=== PATIENT | female | born 1940 | race Caucasian/White ===

== ENCOUNTER 2018-11-13 15:49 | Inpatient (IN) ==
[2018-11-13 19:38] LABS: ABG Base Excess 11 mEq/L (-2 to 3); ABG HCO3 38 mEq/L (21-27); ABG Oxygen Saturation 96 % (95-98); ABG PCO2 60 mmHg (35-45); ABG PH 7.41 pH Units (7.32-7.45); ABG PO2 84 mmHg (85-104); ABG TCO2 40 mEq/L (20-26); Blood Gas Modality ST; Blood Gas PEEP 12 cm H2O; Blood Gas Pressure Support 6 cm H2O
[2018-11-13 19:59] LABS: Basophils % 0.3 %; Eosinophils % 0.1 %; Hematocrit 35.4 % (35.3-44.9); Hemoglobin 10.7 g/dL (11.5-15.4); Immature Granulocytes % 1.7 % (0-4); Lymphocytes # 0.5 K/mcL (0.6-4.6); Lymphocytes % 5.4 %; Mean Corpuscular HGB Conc 30.2 g/dL (31.6-35.5); Mean Corpuscular Hemoglobin 30.1 pg (28.0-33.3); Mean Corpuscular Volume 99.4 fL (83.0-100.0); Mean Platelet Volume 9.5 fL (9.4-12.4); Monocytes # 0.1 K/mcL (0.0-1.3); Monocytes % 0.6 %; Neutrophils # 8.3 K/mcL (1.6-8.9); Platelet Count 200 K/mcL (140-400); Red Blood Count 3.56 M/mcL (3.82-4.97); Segmented Neutrophils % 91.9 %
[2018-11-13 20:14] LABS: Alanine Aminotransferase 9 Units/L (7-52); Albumin 3.3 g/dL (3.5-5.7); Albumin/Globulin Ratio 1.1 (1.1-2.2); Alkaline Phosphatase 82 Units/L (34-104); Aspartate Amino Transferase 11 Units/L (13-39); BUN/Creatinine Ratio 49 (6-26); Bilirubin,Total 0.4 mg/dL (0.3-1.0); Blood Urea Nitrogen 33 mg/dL (8-23); Calcium 9.6 mg/dL (8.6-10.3); Carbon Dioxide 35 mEq/L (23-29); Chloride 97 mEq/L (98-107); Globulin 3.1 g/dL (2.4-3.5); Glucose 168 mg/dL (70-105); Osmolality,Calculated 295 (280-300); Potassium 4.7 mEq/L (3.5-5.1); Sodium 137 mEq/L (136-145); Total Protein 6.4 g/dL (6.4-8.9); eGFR For African Americans > 60 (> 60); eGFR For Non-African Americans > 60 (> 60)
[2018-11-13] MEDS ORDERED: Naloxone 0.4 MG/ML INJ IVP PRN (21:19)
[2018-11-13] MEDS ORDERED: Dextrose Gel 15 GM/37.5 ML TUBE PO PRN ×2 (21:22)
[2018-11-13] MEDS ORDERED: D5% in Water 1,000 ML IVC PRN (21:22)
[2018-11-13] MEDS ORDERED: *HR* Dextrose 50 % in Water (Syg) 50 ML SYRINGE IVP PRN (21:22)
--- NOTE | 2018-11-13 22:10 | Internal Med History&Physical ---
Date of Encounter: 11/13/18 Time of Encounter: 22:09 Internal Medicine - H&P: HPI Chief complaint: Shortness of breath History of present illness: Ms. Norris is a 78 year old female with a past medical history of atrial fibrillation on anticoagulation, RI, CHF, COPD on home O2, and diabetes who initially presented to [facility] because of worsening shortness of b reath. Patient states she has had shortness of breath for the past few weeks which progressively got worse today. Patient reports some wheezing as well as increased lower extremity edema. She is currently on Lasix and reports medication compliance. Denies any chest pain. Patient has a cough but reports is chronic and unchanged. Patient is unsure about weight gain. Denies any fever, chills, abdominal pain, diarrhea. Patient is on oxygen but does not know the amount. Per family was at bedside, she has been noncompliant with her BiPAP which she has been instructed to wear at night. Patient reportedly found to have a PCO2 of 84 and was subsequently placed on BiPAP. Repeat PCO2 is 81. INR was slightly subtherapeutic at 4.1. On arrival patient was afebrile, hemodynamically stable. Tachycardic in the 120s. On my assessment patient was offered BiPAP saturating 93% on 4 L. Repeat ABG was obtained which showed a pH of 7.41, PCO2 of 60, PO2 of 84. She was alert oriented 3 mentating well. No evidence of respiratory distress. Admitted for CHF and COPD exacerbation. Past Med Surg Social Fam HX - Past Medical History Medical history: atrial fibrillation, CHF, COPD, diabetes, hyperlipidemia, hypertension, myocardial infarction Additional medical history: neuropathy, anemia, breast cx Psychiatric history: no psych history - Past Surgical History Surgical History: knee replacement Additional surgical history: right leg surgery, cardiac stents, - Social History Smoking Status: Former smoker Smokeless Tobacco Status: No Alcohol use: none Drug use: none - Family History Mother Living Status: Cause of : Stroke Hx Family Endocrine Disorder: Yes (DM) Internal Medicine - H&P: Meds Acetaminophen [Tylenol] 650 mg PO Q6HR PRN 11/14/18 [History] Albuterol Neb [Proventil Neb] 2.5 mg IH Q6HR PRN 11/14/18 [History] Allopurinol [Zyloprim] 300 mg PO DAILY 11/14/18 [History] Diltiazem CD (24hr) [Cardizem CD] 180 mg PO QAM 11/14/18 [History] Escitalopram [Lexapro] 10 mg PO DAILY 11/14/18 [History] Ferrous Sulfate [Iron] 325 mg PO DAILY 11/14/18 [History] Fluticasone Propionate [Flovent Diskus] 2 each IH QAM 11/14/18 [History] Fluticasone/Salmeterol [Advair 500-50 Diskus] 1 puff IH BID 11/14/18 [History] Furosemide [Lasix] 40 mg PO BID 11/14/18 [History] Insulin ASPART [Novolog Flexpen] See Protocol SQ ACHS 11/14/18 [History] Insulin DETEMIR [Levemir Flextouch] 30 unit SQ HS 11/14/18 [History] Ipratropium Neb [Atrovent Neb] 0.5 mg IH Q8HR PRN 11/14/18 [History] Melatonin [Melatin] 3 mg PO HS 11/14/18 [History] Metoprolol Succinate 50 mg PO QAM 11/14/18 [History] Nitroglycerin [Nitrostat] 0.4 mg SL Q5MIN PRN 11/14/18 [History] Omeprazole [PriLOSEC] 20 mg PO DAILY 11/14/18 [History] Ondansetron ODT [Zofran ODT] 4 mg SL Q6HR PRN 11/14/18 [History] Polyethylene Glycol 3350 [MiraLAX] 17 gm PO DAILY 11/14/18 [History] Sennosides/Docusate Sodium [Dok Plus Tablet] 1 each PO DAILY 11/14/18 [History] Simvastatin [Zocor] 10 mg PO DAILY 11/14/18 [History] Ubidecarenone [Coenzyme Q10] 200 mg PO DAILY 11/14/18 [History] Vitamin B Complex [B Complex] 1 tab PO QAM 11/14/18 [History] Warfarin [Coumadin] 3 mg PO DAILY 11/14/18 [History] Allergy/AdvReac Type Severity Reaction Status Date / Time Amoxicillin Allergy Unknown Verified 11/13/18 22:34 atorvastatin [From Lipitor] Allergy Shakiness Verified 11/13/18 22:34 celecoxib [From Celebrex] Allergy Shakiness Verified 11/13/18 22:34 naproxen Allergy Shakiness Verified 11/13/18 22:34 NSAIDS (Non-Steroidal Allergy Shakiness Verified 11/13/18 22:34 Anti-Inflamma Penicillins AdvReac Depression Verified 11/13/18 19:43 All Systems PM: A 10-system review of systems was performed and is negative for pertinent findings except as documented above in the HPI. - Constitutional Constitutional: no chills, no fever(s), no night sweats - EENT Eyes: no change in vision, no discharge, no pain, no photophobia Ears: no ear discharge, no ear pain, no tinnitus Nose, mouth and throat: no dysphagia, no nasal discharge, no neck pain, no sore throat - Cardiovascular Cardiovascular ROS IM: no chest pain, no diaphoresis, no dyspnea, no lightheadedness, no palpitations, no syncope - Respiratory Respiratory: no cough, no dyspnea, no wheezing, no excessive phlegm production - Gastrointestinal Gastrointestinal: no abdominal pain, no diarrhea, no hematemesis, no hematochezia, no melena, no nausea, no vomiting - Genitourinary Genitourinary: no change in urinary stream, no dysuria, no flank pain, no hematuria - Musculoskeletal Musculoskeletal ROS IM: no numbness, no tingling - Integumentary Integumentary IM: no rash, no unusual bruising - Neurological Neurological ROS: no confusion, no convulsions, no focal weakness, no numbness, no tingling, no tremor(s) - Hematologic/Lymphatic Hematologic/Lymphatic: no easy bruising - Constitutional Vitals: Temp Pulse Resp BP Pulse Ox 98.1 F 123 22 171/91 97 11/13/18 20:02 11/13/18 20:02 11/13/18 20:02 11/13/18 20:02 11/13/18 20:02 Exam: General: Alert and oriented 3 Skin:Normal color, no rash, no lesions. HEENT:EOM, pupils equal, round and reactive. Cardiovascular:Normal S1 & S2, irregularly irregular Lungs: Faint diffuse wheezing bilaterally Abdomen:Soft, non-tender, no rigidity. Extremities: 2+ pitting edema bilaterally. Neurological:Normal cognition and motor skills. Pulses:Carotid and radial pulses normal +2. Rest of the physical exam is non contributory Internal Med - H&P Results - Labs CBC & Chem 7: 11/14/18 03:50 11/14/18 03:50 Labs: Short CBC 11/13/18 Range/Units 19:40 WBC 9.0 (4.3-11.1) K/mcL Hgb 10.7 L (11.5-15.4) g/dL Hct 35.4 (35.3-44.9) % Plt Count 200 (140-400) K/mcL Neutrophils # 8.3 (1.6-8.9) K/mcL BMP 11/13/18 19:40 Sodium 137 Potassium 4.7 Chloride 97 L Carbon Dioxide 35 H BUN 33 H Creatinine 0.68 Glucose 168 H Calcium 9.6 Cardiac Enzymes 11/13/18 Range/Units 19:40 Troponin I < 0.03 (< 0.04) ng/mL Liver Function 11/13/18 Range/Units 19:40 Total Bilirubin 0.4 (0.3-1.0) mg/dL AST 11 L (13-39) Units/L ALT 9 (7-52) Units/L Alkaline Phosphatase 82 (34-104) Units/L Albumin 3.3 L (3.5-5.7) g/dL - ABG Interpretation ABG results: 11/13/18 19:35 ABG pH 7.41 ABG pCO2 60 H ABG pO2 84 L ABG HCO3 38 H ABG Total CO2 40 H ABG O2 Saturation 96 ABG Base Excess 11 H - Assessment and Plan (1) COPD exacerbation Current Visit: Yes Status: Acute Assessment and plan: History of COPD on home oxygen. Found to have a PCO2 of 84 on initial ABG. Patient was placed on BiPAP prior to transfer. Repeat ABG here shows a PCO2 of 60 and pH of 7.41. Patient currently mentating well on 4 L nasal cannula. Has a history of BiPAP noncompliance at night. -Continue duo nebs -Solu-Medrol 40 every 6 hours -Azithromycin -BiPAP at night (2) Acute exacerbation of CHF (congestive heart failure) Current Visit: Yes Status: Acute Assessment and plan: Patient presenting with dyspnea in the setting of increased lower extremity edema and history of congestive heart failure. No previous records of echo in our system. No reports of chest pain. Patient is currently on 40 mg of Lasix twice a day. Denies any medication noncompliance. Suspect some dietary indiscretions given the patient was eating a ham sandwich on my initial assessment. -Telemetry -Strict I's and O's; daily weights -We will start patient on 40 mg of Lasix IV push twice a day -We will obtain echocardiogram in the morning -Monitor lites lites and kidney function Qualifiers: Heart failure type: unspecified Qualified Code(s): I50.9 - Heart failure, unspecified (3) Atrial fibrillation Current Visit: Yes Status: Acute Assessment and plan: History of atrial fibrillation rate controlled on anticoagulation with warfarin. On arrival patient was mildly tachycardic in the 120s. Patient is unsure if she had taken her medications today. Some of it may be due to hypoxemia. INR found to be supratherapeutic at 4 -Continue rate control medications -Hold warfarin for now Qualifiers: Atrial fibrillation type: unspecified Qualified Code(s): I48.91 - Unspecified atrial fibrillation (4) Diabetes type 2, controlled Current Visit: Yes Status: Acute Assessment and plan: Blood glucose on arrival 168. We will start patient on ADA diet with sliding scale plus basal insulin. 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 We will hold warfarin for now. Recheck INR in the morning. - Time Spent With Patient Total time spent is greater than 50% in coordination of care (as documented) at patient's floor/unit and/or counseling patient:
[2018-11-13] MEDS: Ipratropium/Albuterol Neb 3 ML IH SCH (23:12)
[2018-11-13] MEDS: Insulin DETEMIR 100 UNIT/ML X5UNITS SQ SCH (23:15)
[2018-11-13] MEDS: Insulin LISPRO 300 UNITS/3 ML VIAL SQ SCH (23:52)
[2018-11-14] MEDS ORDERED: *HR* Metoprolol 5 MG/5 ML VIAL IVP PRN (00:49)
[2018-11-14] MEDS: Furosemide 40 MG/4 ML VIAL IVP SCH ×3 (01:07→21:57)
[2018-11-14] MEDS: MethylPREDNISolone 40 MG/ML VIAL IVP SCH ×4 (01:07→17:16)
[2018-11-14] MEDS: Azithromycin 500 MG in D5% in Water 250 ML IVPB SCH (03:19)
[2018-11-14] MEDS: Ipratropium/Albuterol Neb 3 ML IH SCH ×4 (04:00→22:30)
[2018-11-14 04:17] LABS: Basophils % 0.1 %; Hematocrit 36.5 % (35.3-44.9); Hemoglobin 10.8 g/dL (11.5-15.4); Immature Granulocytes % 1.4 % (0-4); Lymphocytes # 0.5 K/mcL (0.6-4.6); Lymphocytes % 5.8 %; Mean Corpuscular HGB Conc 29.6 g/dL (31.6-35.5); Mean Corpuscular Hemoglobin 29.7 pg (28.0-33.3); Mean Corpuscular Volume 100.3 fL (83.0-100.0); Monocytes # 0.1 K/mcL (0.0-1.3); Monocytes % 1.1 %; Neutrophils # 7.6 K/mcL (1.6-8.9); Platelet Count 219 K/mcL (140-400); Red Blood Count 3.64 M/mcL (3.82-4.97); Red Cell Distribution Width 16.1 % (11.5-14.5); Segmented Neutrophils % 91.6 %; White Blood Count 8.3 K/mcL (4.3-11.1)
[2018-11-14 04:34] LABS: Prothrombin Time 45.5 Seconds (9.4-12.1)
[2018-11-14 04:39] LABS: Alanine Aminotransferase 6 Units/L (7-52); Albumin 3.2 g/dL (3.5-5.7); Albumin/Globulin Ratio 1.1 (1.1-2.2); Alkaline Phosphatase 78 Units/L (34-104); Aspartate Amino Transferase 14 Units/L (13-39); BUN/Creatinine Ratio 47 (6-26); Bilirubin,Total 0.3 mg/dL (0.3-1.0); Blood Urea Nitrogen 36 mg/dL (8-23); Calcium 9.3 mg/dL (8.6-10.3); Carbon Dioxide 33 mEq/L (23-29); Chloride 95 mEq/L (98-107); Glucose 378 mg/dL (70-105); Osmolality,Calculated 310 (280-300); Potassium 4.7 mEq/L (3.5-5.1); Sodium 138 mEq/L (136-145); Total Protein 6.2 g/dL (6.4-8.9); eGFR For African Americans > 60 (> 60); eGFR For Non-African Americans > 60 (> 60)
[2018-11-14] MEDS: Insulin LISPRO 300 UNITS/3 ML VIAL SQ SCH ×3 (08:36→17:16)
--- NOTE | 2018-11-14 08:53 | Internal Med Progress Note ---
Hospitalist Progress Note - Encounter Date of Encounter: 11/14/18 Time of Encounter: 08:45 - Subjective Interval History: No acute events overnight - Exam Vitals: Temp Pulse Resp BP Pulse Ox 97.8 F 110 17 165/70 96 11/14/18 04:44 11/14/18 06:58 11/14/18 06:58 11/14/18 06:58 11/14/18 06:58 Exam: General: Alert and oriented 3 Skin:Normal color, no rash, no lesions. HEENT:EOM, pupils equal, round and reactive. Cardiovascular:Normal S1 & S2, irregularly irregular Lungs: Faint diffuse wheezing bilaterally Abdomen:Soft, non-tender, no rigidity. Extremities: 2+ pitting edema bilaterally. Neurological:Normal cognition and motor skills. Pulses:Carotid and radial pulses normal +2. Rest of the physical exam is non contributory - Assessment and Plan (1) Acute and chronic respiratory failure with hypercapnia Current Visit: Yes Status: Acute Assessment and Plan: Pt comes in with acute on chronic respiratory failure secondary to CHF and COPD exacerbation' Continue BIPAP, nebs, steroids and antibiotics and diuresis with lasix (2) COPD exacerbation Current Visit: Yes Status: Acute Assessment and Plan: History of COPD on home oxygen. Found to have a PCO2 of 84 on initial ABG. Patient was placed on BiPAP prior to transfer. Repeat ABG here shows a PCO2 of 60 and pH of 7.41. Continue BIPAP, nebs, steroids and antibiotics (3) Acute exacerbation of CHF (congestive heart failure) Current Visit: Yes Status: Acute Assessment and Plan: Patient presenting with dyspnea in the setting of increased lower extremity edema and history of congestive heart failure. Improving on lasix BID. Monitor ins and outs. Fluid restriction (4) Atrial fibrillation Current Visit: Yes Status: Acute Assessment and Plan: History of atrial fibrillation rate controlled on anticoagulation with warfarin. On arrival patient was mildly tachycardic in the 120s. Continue rate control with beta blockers. Warfarin for anticoagulation (5) Diabetes type 2, controlled Current Visit: Yes Status: Acute Assessment and Plan: Blood glucose on arrival 168. Continue patient on ADA diet with sliding scale plus basal insulin. (6) Supratherapeutic INR Current Visit: Yes Status: Acute Assessment and Plan: Supratherapeutic INR of 4 in the setting of warfarin use. Pharmacy to dose warfarin and monitor INR DVT Prophylaxis: On coumadin - Time Spent with Patient Total time spent is greater than 50% in coordination of care (as documented) at patient's floor/unit and/or counseling patient: Internal Medicine: Result - Labs CBC & Chem 7: 11/14/18 03:50 11/14/18 03:50 Labs: Short CBC 11/13/18 11/14/18 Range/Units 19:40 03:50 WBC 9.0 8.3 (4.3-11.1) K/mcL Hgb 10.7 L 10.8 L (11.5-15.4) g/dL Hct 35.4 36.5 (35.3-44.9) % Plt Count 200 219 (140-400) K/mcL Neutrophils # 8.3 7.6 (1.6-8.9) K/mcL BMP 11/13/18 11/14/18 19:40 03:50 Sodium 137 138 Potassium 4.7 4.7 Chloride 97 L 95 L Carbon Dioxide 35 H 33 H BUN 33 H 36 H Creatinine 0.68 0.77 Glucose 168 H 378 H Calcium 9.6 9.3 Cardiac Enzymes 11/13/18 Range/Units 19:40 Troponin I < 0.03 (< 0.04) ng/mL Liver Function 11/13/18 11/14/18 Range/Units 19:40 03:50 Total Bilirubin 0.4 0.3 (0.3-1.0) mg/dL AST 11 L 14 (13-39) Units/L ALT 9 6 L (7-52) Units/L Alkaline Phosphatase 82 78 (34-104) Units/L Albumin 3.3 L 3.2 L (3.5-5.7) g/dL - ABG Interpretation ABG results: ABG ABG pH 7.41 pH Units (7.32-7.45) 11/13/18 19:35 ABG pCO2 60 mmHg (35-45) H 11/13/18 19:35 ABG pO2 84 mmHg (85-104) L 11/13/18 19:35 ABG O2 Saturation 96 % (95-98) 11/13/18 19:35 PT/INR, D-dimer PT 45.5 Seconds (9.4-12.1) H* 11/14/18 03:50 - Impressions Impressions Chest X-Ray 11/14/18 05:00 IMPRESSION: Cardiomegaly with bilateral pleural effusions and bilateral airspace opacities in the mid and lower lungs which could represent edema, atelectasis, and/or infection. 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
[2018-11-14] MEDS: cefTRIAXone 1,000 MG in Water for inj. (sterile) 10 ML IVP SCH (10:48)
[2018-11-14 17:01] LABS: ABG Base Excess 14 mEq/L (-2 to 3); ABG HCO3 41 mEq/L (21-27); ABG Oxygen Saturation 89 % (95-98); ABG PCO2 66 mmHg (35-45); ABG PH 7.41 pH Units (7.32-7.45); ABG PO2 60 mmHg (85-104); ABG TCO2 43 mEq/L (20-26)
[2018-11-14] MEDS ORDERED: Warfarin perPT PO PRN (18:00)
[2018-11-14] MEDS: Insulin DETEMIR 100 UNIT/ML X5UNITS SQ SCH (21:57)
[2018-11-14] MEDS: traMADol 50 MG TABLET PO PRN (22:39)
[2018-11-15] MEDS: MethylPREDNISolone 40 MG/ML VIAL IVP SCH ×5 (00:33→23:54)
[2018-11-15] MEDS: Insulin LISPRO 300 UNITS/3 ML VIAL SQ SCH ×5 (03:53→21:40)
[2018-11-15] MEDS: Azithromycin 500 MG in D5% in Water 250 ML IVPB SCH (03:55)
[2018-11-15] MEDS: Ipratropium/Albuterol Neb 3 ML IH SCH ×4 (04:07→22:04)
[2018-11-15 06:34] LABS: Basophils % 0.1 %; Hematocrit 32.5 % (35.3-44.9); Hemoglobin 9.9 g/dL (11.5-15.4); Immature Granulocytes % 1.5 % (0-4); Lymphocytes # 0.8 K/mcL (0.6-4.6); Lymphocytes % 6.5 %; Mean Corpuscular HGB Conc 30.5 g/dL (31.6-35.5); Mean Corpuscular Hemoglobin 30.2 pg (28.0-33.3); Mean Corpuscular Volume 99.1 fL (83.0-100.0); Mean Platelet Volume 10.1 fL (9.4-12.4); Monocytes # 0.4 K/mcL (0.0-1.3); Monocytes % 3.4 %; Neutrophils # 10.3 K/mcL (1.6-8.9); Platelet Count 230 K/mcL (140-400); Red Blood Count 3.28 M/mcL (3.82-4.97); Red Cell Distribution Width 16.5 % (11.5-14.5); Segmented Neutrophils % 88.5 %; White Blood Count 11.6 K/mcL (4.3-11.1)
[2018-11-15 06:50] LABS: INR 3.5; Prothrombin Time 40.3 Seconds (9.4-12.1)
[2018-11-15 07:01] LABS: Calcium 9.2 mg/dL (8.6-10.3); Magnesium 1.6 mg/dL (1.6-2.6); Phosphorous 2.7 mg/dL (2.7-4.5); Potassium 4.6 mEq/L (3.5-5.1)
[2018-11-15] MEDS: cefTRIAXone 1,000 MG in Water for inj. (sterile) 10 ML IVP SCH (08:44)
[2018-11-15] MEDS: Furosemide 40 MG/4 ML VIAL IVP SCH ×2 (08:45→21:40)
[2018-11-15] MEDS: traMADol 50 MG TABLET PO PRN ×2 (12:46→21:53)
--- NOTE | 2018-11-15 13:09 | Internal Med Progress Note ---
Hospitalist Progress Note - Encounter Date of Encounter: 11/15/18 Time of Encounter: 13:04 - Subjective Interval History: Patient seen and examined today. She states that her breathing is better. She is almost at her baseline breathing. Nurse feels she is slightly sluggish or confused. Her WBC ct is worse today. Occasional tachycardia. Pt is hard of h earing and unable to perform an MMSE. - Exam Vitals: Temp Pulse Resp BP Pulse Ox 97.8 F 92 18 164/99 94 11/15/18 07:59 11/15/18 12:07 11/15/18 12:07 11/15/18 12:07 11/15/18 12:07 Exam: General: Alert and oriented. Skin:Normal color, no rash, no lesions. HEENT:EOM, pupils equal, round and reactive. Cardiovascular:Normal S1 & S2, irregularly irregular Lungs: Faint diffuse wheezing bilaterally Abdomen:Soft, non-tender, no rigidity. Extremities: 2+ pitting edema bilaterally. Neurological:Normal cognition and motor skills. - Assessment and Plan (1) Acute and chronic respiratory failure with hypercapnia Current Visit: Yes Status: Acute Assessment and Plan: Pt comes in with acute on chronic respiratory failure secondary to CHF and COPD exacerbation' Continue BIPAP, nebs, steroids and antibiotics and diuresis. Check CXR and UA due to nursing reported slight confusion/sluggishness this morning. (2) COPD exacerbation Current Visit: Yes Status: Acute Assessment and Plan: History of COPD on home oxygen. Found to have a PCO2 of 84 on initial ABG. Patient was placed on BiPAP prior to transfer. Repeat ABG here shows a PCO2 of 60 and pH of 7.41. Continue BIPAP, nebs, steroids and antibiotics (3) Acute exacerbation of CHF (congestive heart failure) unspecified EF Current Visit: Yes Status: Acute Assessment and Plan: Improving. Patient presented with dyspnea in the setting of increased lower extremity edema and history of congestive heart failure. Improving on lasix BID. Monitor ins and outs. Fluid restriction, Await Echo. (4) Atrial fibrillation Current Visit: Yes Status: Acute Assessment and Plan: History of atrial fibrillation rate controlled on anticoagulation with warfarin. On arrival patient was mildly tachycardic in the 120s. Continue rate control with beta blockers. Warfarin for anticoagulation. Phrmacy to monitor warfarin. (5) Diabetes type 2, controlled Current Visit: Yes Status: Acute Assessment and Plan: Blood glucose on arrival 168. Continue patient on ADA diet with sliding scale plus basal insulin. - Time Spent with Patient Total time spent is greater than 50% in coordination of care (as documented) at patient's floor/unit and/or counseling patient: Plan of Care Discussed with: patient Internal Medicine: Result - Labs CBC & Chem 7: 11/17/18 04:02 11/17/18 04:02 Labs: Short CBC 11/15/18 Range/Units 05:54 WBC 11.6 H (4.3-11.1) K/mcL Hgb 9.9 L (11.5-15.4) g/dL Hct 32.5 L (35.3-44.9) % Plt Count 230 (140-400) K/mcL Neutrophils # 10.3 H (1.6-8.9) K/mcL BMP 11/15/18 05:54 Sodium 139 Potassium 4.6 Chloride 94 L Carbon Dioxide 36 H BUN 45 H Creatinine 1.09 Glucose 328 H Calcium 9.2 - ABG Interpretation ABG results: ABG ABG pH 7.41 pH Units (7.32-7.45) 11/14/18 16:57 ABG pCO2 66 mmHg (35-45) H 11/14/18 16:57 ABG pO2 60 mmHg (85-104) L 11/14/18 16:57 ABG O2 Saturation 89 % (95-98) L 11/14/18 16:57 PT/INR, D-dimer PT 40.3 Seconds (9.4-12.1) H 11/15/18 05:54 - Impressions Impressions Head CT 11/14/18 16:42 IMPRESSION: No acute intracranial abnormality. Findings suggesting acute on chronic sinusitis with air-fluid levels in multiple paranasal sinuses. Findings suggesting chronic bilateral mastoiditis. D/ / 11/14/2018 22:48:55 Michael Pichardo MD / earnold Interpreting Provider: Michael Pichardo MD Consult Discharge Plan - Plan Referrals: NONE,PCP [Primary Care Provider] -
[2018-11-15 18:00] LABS: Bilirubin,Urine Negative (Negative); Blood,Urine Trace-lysed (Negative); Clarity,Urine Clear (Clear); Color,Urine Yellow (Yellow); Glucose,Urine (UA) 100 mg/dL (Normal); Ketones,Urine Negative (Negative); Leukocyte Esterase,Urine Negative (Negative); Nitrite,Urine Negative (Negative); Protein,Urine 100 mg/dL (Neg-Trace); Specific Gravity,Urine >= 1.030 (1.010-1.025); Urobilinogen,Urine Normal (Normal)
[2018-11-15] MEDS ORDERED: *HR* Warfarin 3 MG TABLET PO ONE (18:00)
[2018-11-15 18:02] LABS: Bacteria,Urine None Seen per hpf (None-Few); Hyaline Casts,Urine Few per lpf (None-Few); RBC,Urine 0-3 per hpf (0-3); Squamous Epithelial Cell,Urine Moderate per lpf (None-Few); WBC,Urine 0-3 per hpf (0-3)
[2018-11-15] MEDS: Insulin DETEMIR 100 UNIT/ML X5UNITS SQ SCH (21:40)
[2018-11-16] MEDS: Azithromycin 500 MG in D5% in Water 250 ML IVPB SCH (03:53)
[2018-11-16] MEDS: Ipratropium/Albuterol Neb 3 ML IH SCH ×2 (04:36→10:27)
[2018-11-16] MEDS: MethylPREDNISolone 40 MG/ML VIAL IVP SCH ×2 (06:04→12:47)
[2018-11-16 06:34] LABS: Hematocrit 35.7 % (35.3-44.9); Hemoglobin 10.5 g/dL (11.5-15.4); Lymphocytes # 0.8 K/mcL (0.6-4.6); Lymphocytes % 7.2 %; Mean Corpuscular HGB Conc 29.4 g/dL (31.6-35.5); Mean Corpuscular Hemoglobin 29.5 pg (28.0-33.3); Mean Corpuscular Volume 100.3 fL (83.0-100.0); Mean Platelet Volume 9.8 fL (9.4-12.4); Monocytes # 0.4 K/mcL (0.0-1.3); Monocytes % 3.6 %; Neutrophils # 9.7 K/mcL (1.6-8.9); Platelet Count 226 K/mcL (140-400); Red Blood Count 3.56 M/mcL (3.82-4.97); Red Cell Distribution Width 16.6 % (11.5-14.5); Segmented Neutrophils % 88.2 %
[2018-11-16 06:40] LABS: INR 2.7; Prothrombin Time 30.7 Seconds (9.4-12.1)
[2018-11-16 06:53] LABS: BUN/Creatinine Ratio 52 (6-26); Blood Urea Nitrogen 50 mg/dL (8-23); Calcium 9.4 mg/dL (8.6-10.3); Carbon Dioxide 38 mEq/L (23-29); Chloride 93 mEq/L (98-107); Glucose 238 mg/dL (70-105); Magnesium 1.7 mg/dL (1.6-2.6); Osmolality,Calculated 305 (280-300); Potassium 4.7 mEq/L (3.5-5.1); Sodium 137 mEq/L (136-145); eGFR For African Americans > 60 (> 60); eGFR For Non-African Americans 56 (> 60)
[2018-11-16 07:46] LABS: ABG Base Excess 15 mEq/L (-2 to 3); ABG HCO3 44 mEq/L (21-27); ABG Oxygen Saturation 90 % (95-98); ABG PCO2 74 mmHg (35-45); ABG PH 7.38 pH Units (7.32-7.45); ABG PO2 62 mmHg (85-104); ABG TCO2 46 mEq/L (20-26)
[2018-11-16] MEDS: Insulin LISPRO 300 UNITS/3 ML VIAL SQ SCH ×4 (10:24→21:04)
[2018-11-16] MEDS: cefTRIAXone 1,000 MG in Water for inj. (sterile) 10 ML IVP SCH (10:25)
[2018-11-16] MEDS: Furosemide 40 MG/4 ML VIAL IVP SCH ×2 (10:25→21:05)
[2018-11-16] MEDS ORDERED: Perflutren Lipid Microsphere 1.3 ML in 0.9 % Sodium Chloride 8.7 ML IVP ONE (11:12)
--- NOTE | 2018-11-16 13:18 | Pulmonology Consult Note ---
Date of Encounter: 11/16/18 Time of Encounter: 13:13 Assessment and Plan (1) Acute and chronic respiratory failure with hypercapnia Current Visit: Yes Status: Acute Respiratory failure is multifactorial in etiology. She has a poor underlying pulmonary reserve secondary to body habitus and severe underlying COPD. She has significant hypercapnia baseline, and I would recommend avoiding respiratory depressant such as opioids and benzodiazepines. Recommend that she utilize BiPAP nightly. This can be continued in her nursing facility following disch arge. Otherwise, continue low flow oxygen via nasal cannula during the daytime hours for a goal oxygen saturation greater than 88%. (2) COPD exacerbation Current Visit: Yes Status: Acute Unclear if this is truly an exacerbation of COPD versus the natural progression of end-stage disease. Prior pulmonary function testing revealed a severe disease. Recommend her COPD regimen to include Advair, Spiriva, and when necessary albuterol nebs. I have transitioned her steroids to a 5 day course of by mouth prednisone. A 5 day course of azithromycin for COPD exacerbation would be reasonable. (3) Obesity hypoventilation syndrome Current Visit: Yes Status: Acute Baseline PCO2 appears to be 60-70 mmHg, and her BMI is 46. She should use BiPAP nightly for the rest of her life. She is at risk for future trach depending on goals of care. (4) Acute exacerbation of CHF (congestive heart failure) Current Visit: Yes Status: Acute Diuresis per primary service. I suspect her rising bicarbonate level on Chem-7 is related to contraction alkalosis, which is likely resulting in worsening of her chronic respiratory acidosis. If further diuresis is desired, coadministration of Diamox would be reasonable. Comment: Although she is denying much in the way of symptoms (likely because she is fairly immobile at baseline), she appears to have end-stage lung disease. Pa lliative care consultation would not be unreasonable. No further recommendations from a pulmonary consult. We will sign off. Please call with questions. Qualifiers: Heart failure type: unspecified Qualified Code(s): I50.9 - Heart failure, u nspecified History of Present Illness Consult date: 11/16/18 Requesting physician: Elaine Steiner Reason for consult: COPD Chief complaint: Evaluate breathing History of present illness: Of note, the patient is extremely hard of hearing, therefore I am unable to obtain a full history or review of systems. Further information was obtained from the medical record and in discussion with hospital staff. The patient was transferred from an outside hospital for further evaluation of respiratory failure. In speaking with the patient, she reports no shortness of breath at rest. She is not very mobile at baseline. She reports compliance with BiPAP at night. She has chronic orthopnea. She feels like her breathing is at baseline. Past Med Surg Social Fam HX - Past Medical History Medical history: atrial fibrillation, CHF, COPD, diabetes, hyperlipidemia, hypertension, myocardial infarction Additional medical history: neuropathy, anemia, breast cx Psychiatric history: no psych history - Past Surgical History Surgical History: knee replacement Additional surgical history: right leg surgery, cardiac stents, - Social History Smoking Status: Former smoker Smokeless Tobacco Status: No Alcohol use: none Drug use: none - Family History Mother Living Status: Cause of : Stroke Hx Family Endocrine Disorder: Yes (DM) Medications and Allergies Acetaminophen [Tylenol] 650 mg PO Q6HR PRN 11/14/18 [History] Albuterol Neb [Proventil Neb] 2.5 mg IH Q6HR PRN 11/14/18 [History] Allopurinol [Zyloprim] 300 mg PO DAILY 11/14/18 [History] Diltiazem CD (24hr) [Cardizem CD] 180 mg PO QAM 11/14/18 [History] Escitalopram [Lexapro] 10 mg PO DAILY 11/14/18 [History] Ferrous Sulfate [Iron] 325 mg PO DAILY 11/14/18 [History] Fluticasone Propionate [Flovent Diskus] 2 each IH QAM 11/14/18 [History] Fluticasone/Salmeterol [Advair 500-50 Diskus] 1 puff IH BID 11/14/18 [History] Furosemide [Lasix] 40 mg PO BID 11/14/18 [History] Insulin ASPART [Novolog Flexpen] See Protocol SQ ACHS 11/14/18 [History] Insulin DETEMIR [Levemir Flextouch] 30 unit SQ HS 11/14/18 [History] Ipratropium Neb [Atrovent Neb] 0.5 mg IH Q8HR PRN 11/14/18 [History] Melatonin [Melatin] 3 mg PO HS 11/14/18 [History] Metoprolol Succinate 50 mg PO QAM 11/14/18 [History] Nitroglycerin [Nitrostat] 0.4 mg SL Q5MIN PRN 11/14/18 [History] Omeprazole [PriLOSEC] 20 mg PO DAILY 11/14/18 [History] Ondansetron ODT [Zofran ODT] 4 mg SL Q6HR PRN 11/14/18 [History] Polyethylene Glycol 3350 [MiraLAX] 17 gm PO DAILY 11/14/18 [History] Sennosides/Docusate Sodium [Dok Plus Tablet] 1 each PO DAILY 11/14/18 [History] Simvastatin [Zocor] 10 mg PO DAILY 11/14/18 [History] Ubidecarenone [Coenzyme Q10] 200 mg PO DAILY 11/14/18 [History] Vitamin B Complex [B Complex] 1 tab PO QAM 11/14/18 [History] Warfarin [Coumadin] 3 mg PO DAILY 11/14/18 [History] Allergy/AdvReac Type Severity Reaction Status Date / Time Amoxicillin Allergy Unknown Verified 11/14/18 09:23 atorvastatin [From Lipitor] AdvReac Shakiness Verified 11/14/18 09:23 celecoxib [From Celebrex] AdvReac Shakiness Verified 11/14/18 09:23 naproxen AdvReac Shakiness Verified 11/14/18 09:23 NSAIDS (Non-Steroidal AdvReac Shakiness Verified 11/14/18 09:23 Anti-Inflamma Penicillins AdvReac Depression Verified 11/14/18 09:23 ROS unobtainable: other (Severely hard of hearing) Physical Examination Vital Signs: Vital Signs, Last 4 Hours Resp Pulse Ox 11/16/18 10:27 16 93 General appearance: no acute distress Eyes: nonicteric ENT: oropharynx moist Neck: supple Effort: normal Auscultation: bilateral: diminished breath sounds Cardiovascular: regular rate and rhythm Gastrointestinal: normoactive bowel sounds, soft, non-tender, other (Large pannus) Extremities: edema normal mental status, non-focal exam mood appropriate, affect normal Results - Laboratory Findings CBC and BMP: 11/16/18 05:47 11/16/18 05:47 ABG ABG pH 7.38 pH Units (7.32-7.45) 11/16/18 07:43 ABG pCO2 74 mmHg (35-45) H* 11/16/18 07:43 ABG pO2 62 mmHg (85-104) L 11/16/18 07:43 ABG O2 Saturation 90 % (95-98) L 11/16/18 07:43 PT/INR, D-dimer PT 30.7 Seconds (9.4-12.1) H 11/16/18 05:47 Abnormal lab findings: Abnormal lab results WBC 11.6 K/mcL (4.3-11.1) H 11/15/18 05:54 RBC 3.56 M/mcL (3.82-4.97) L 11/16/18 05:47 Hgb 10.5 g/dL (11.5-15.4) L 11/16/18 05:47 Hct 32.5 % (35.3-44.9) L 11/15/18 05:54 MCV 100.3 fL (83.0-100.0) H 11/16/18 05:47 MCHC 29.4 g/dL (31.6-35.5) L 11/16/18 05:47 RDW 16.6 % (11.5-14.5) H 11/16/18 05:47 Neutrophils # 9.7 K/mcL (1.6-8.9) H 11/16/18 05:47 Lymphocytes # 0.5 K/mcL (0.6-4.6) L 11/14/18 03:50 PT 30.7 Seconds (9.4-12.1) H 11/16/18 05:47 APTT 54.0 Seconds (26.0-36.0) H 11/14/18 03:50 ABG pCO2 74 mmHg (35-45) H* 11/16/18 07:43 ABG pO2 62 mmHg (85-104) L 11/16/18 07:43 ABG HCO3 44 mEq/L (21-27) H 11/16/18 07:43 ABG Total CO2 46 mEq/L (20-26) H 11/16/18 07:43 ABG O2 Saturation 90 % (95-98) L 11/16/18 07:43 ABG Base Excess 15 mEq/L (-2 to 3) H 11/16/18 07:43 Chloride 93 mEq/L (98-107) L 11/16/18 05:47 Carbon Dioxide 38 mEq/L (23-29) H 11/16/18 05:47 BUN 50 mg/dL (8-23) H 11/16/18 05:47 Est GFR ( Amer) 59 (> 60) L 11/15/18 05:54 Est GFR (Non-Af Amer) 56 (> 60) L 11/16/18 05:47 BUN/Creatinine Ratio 52 (6-26) H 11/16/18 05:47 Glucose 238 mg/dL (70-105) H 11/16/18 05:47 POC Glucose 263 mg/dL (70-99) H 11/15/18 17:21 Calculated Osmolality 305 (280-300) H 11/16/18 05:47 AST 11 Units/L (13-39) L 11/13/18 19:40 ALT 6 Units/L (7-52) L 11/14/18 03:50 B-Natriuretic Peptide 490 pg/mL (Less than 100) H 11/16/18 05:47 Serum Total Protein 6.2 g/dL (6.4-8.9) L 11/14/18 03:50 Albumin 3.2 g/dL (3.5-5.7) L 11/14/18 03:50 Ur Specific Dorris >= 1.030 (1.010-1.025) H 11/15/18 17:52 Urine Protein 100 mg/dL (Neg-Trace) H 11/15/18 17:52 Urine Glucose (UA) 100 mg/dL (Normal) H 11/15/18 17:52 Urine Blood Trace-lysed (Negative) H 11/15/18 17:52 Ur Squamous Epith Cells Moderate per lpf (None-Few) H 11/15/18 17:52 - Microbiology Findings Microbiology Findings: Microbiology, Last 48 Hours 11/15/18 01:50 Legionella Antigen - Final Urine,Clean Catch Streptococcus pneumoniae Antigen (M - Final - Clinical Findings Intake & Output: Intake & Output 11/15/18 11/16/18 11/16/18 23:59 07:59 15:59 Intake Total 480 / 480 Output Total 600 / 600 Balance -600 / -120 480 / -120 Consult Discharge Plan - Plan Referrals: NONE,PCP [Primary Care Provider] -
[2018-11-16] MEDS: Albuterol 2.5 MG/3 ML NEBULIZER IH SCH ×2 (15:19→23:11)
[2018-11-16] MEDS ORDERED: *HR* Warfarin 3 MG TABLET PO ONE (18:00)
--- NOTE | 2018-11-16 19:28 | Internal Med Progress Note ---
Hospitalist Progress Note - Encounter Date of Encounter: 11/16/18 Time of Encounter: 09:30 - Subjective Interval History: Pt seen and examined today. She is hard of hearing. Her ABG shows worsening hypercapnea. Await Echo and requesting Pulm consult. Today pt's Afib is worse with HR upto 119/m. She denies Chest pain or worsening SOB. - Exam Vitals: Temp Pulse Resp BP Pulse Ox 97.7 F 114 16 166/101 90 11/16/18 07:52 11/16/18 17:03 11/16/18 17:03 11/16/18 17:03 11/16/18 17:03 Exam: General: Alert and oriented 3 Skin:Normal color, no rash, no lesions. HEENT:EOM, pupils equal, round and reactive. Cardiovascular:Normal S1 & S2, irregularly irregular Lungs: Faint diffuse wheezing bilaterally Abdomen:Soft, non-tender, no rigidity. Extremities: 2+ pitting edema bilaterally. Neurological:Normal cognition and motor skills. - Assessment and Plan (1) Acute and chronic respiratory failure with hypercapnia Current Visit: Yes Status: Acute Assessment and Plan: Pt comes in with acute on chronic respiratory failure secondary to CHF and COPD exacerbation' Continue BIPAP, nebs, steroids and antibiotics and diuresis. Pulm consult. (2) COPD exacerbation Current Visit: Yes Status: Acute Assessment and Plan: History of COPD on home oxygen. Found to have a PCO2 of 84 on initial ABG. Patient was placed on BiPAP prior to transfer. Continue BIPAP, nebs, steroids and antibiotics. Pulm consult appreciated. (3) Acute exacerbation of CHF (congestive heart failure) unspecified EF Current Visit: Yes Status: Acute Assessment and Plan: Improving. Patient presented with dyspnea in the setting of increased lower extremity edema and history of congestive heart failure. Improving on lasix BID. Monitor ins and outs. Fluid restriction, Await Echo. (4) Atrial fibrillation Current Visit: Yes Status: Acute Assessment and Plan: History of atrial fibrillation rate controlled on anticoagulation with warfarin. Today in mild RVR. Add diltiazem 30 mg PO q 6 H. Continue beta blockers. Warfarin for anticoagulation. Pharmacy to monitor warfarin. (5) Diabetes type 2, controlled Current Visit: Yes Status: Acute Assessment and Plan: Stable. Continue patient on ADA diet with sliding scale plus basal insulin. Reason for contd stay. Pulm consult and Afib RVR - Time Spent with Patient Total time spent is greater than 50% in coordination of care (as documented) at patient's floor/unit and/or counseling patient: Internal Medicine: Result - Labs CBC & Chem 7: 11/17/18 04:02 11/17/18 04:02 Labs: Short CBC 11/16/18 Range/Units 05:47 WBC 11.0 (4.3-11.1) K/mcL Hgb 10.5 L (11.5-15.4) g/dL Hct 35.7 (35.3-44.9) % Plt Count 226 (140-400) K/mcL Neutrophils # 9.7 H (1.6-8.9) K/mcL BMP 11/16/18 05:47 Sodium 137 Potassium 4.7 Chloride 93 L Carbon Dioxide 38 H BUN 50 H Creatinine 0.96 Glucose 238 H Calcium 9.4 - ABG Interpretation ABG results: ABG ABG pH 7.38 pH Units (7.32-7.45) 11/16/18 07:43 ABG pCO2 74 mmHg (35-45) H* 11/16/18 07:43 ABG pO2 62 mmHg (85-104) L 11/16/18 07:43 ABG O2 Saturation 90 % (95-98) L 11/16/18 07:43 PT/INR, D-dimer PT 30.7 Seconds (9.4-12.1) H 11/16/18 05:47 - Impressions Impressions Echocardiogram 11/16/18 09:24 Impressions: Technically challenging exam. Atrial fibrillation with elevated heart rate. LV systolic function is challenging to estimate due to elevated heart rate. Grossly, there is normal to mildly reduced LV systolic function. Recommend reevaluation when heart rates improved. Left ventricular hypertrophy. Indeterminate diastolic function. Definity echo contrast was used. Right ventricular structure is normal. Grossly, systolic function is low normal. Severe bi-atrial enlargement. Mild mitral regurgitation. Mild tricuspid regurgitation. Moderate pulmonary hypertension. There is a trivial pericardial effusion present. There is no echocardiographic evidence of tamponade. Large pleural effusion. Findings: Study Quality * Technically challenging exam. ECG Findings * Atrial fibrillation with elevated heart rate. Left Ventricle * LV systolic function is challenging to estimate due to elevated heart rate. Grossly, there is normal to mildly reduced LV systolic function. * Left ventricular hypertrophy. * Indeterminate diastolic function. * Definity echo contrast was used. Right Ventricle * Right ventricular structure is normal. Grossly, systolic function is low normal. Left Atrium * Severely dilated left atrium. Right Atrium * Severely dilated right atrium. Mitral Valve * Mild mitral annular calcification * Mild mitral regurgitation. * No mitral stenosis. * Mildly calcified mitral valve leaflets. Aortic Valve * No aortic regurgitation. * Trileaflet aortic valve. * No aortic stenosis. * Mildly thickened aortic valve leaflets. Tricuspid Valve * Normal tricuspid valve structure. * Mild tricuspid regurgitation. * Estimated RA pressure is 20 mmHg. * Estimated RVSP is 58 mmHg. * Moderate pulmonary hypertension. Pulmonic Valve * Pulmonic valve is not well visualized. * No pulmonic stenosis. * No pulmonic regurgitation. Pulmonary Artery * Pulmonary artery not well visualized. Aorta * Normally sized aortic root. Pericardium * There is a trivial pericardial effusion present. * There is no echocardiographic evidence of tamponade. Pleural Effusion * Large pleural effusion. Interatrial Septum * No evidence of PFO by color Doppler. IVC * The IVC is dilated. * < 50% respiratory change. Consult Discharge Plan - Plan Referrals: NONE,PCP [Primary Care Provider] -
[2018-11-16] MEDS: traMADol 50 MG TABLET PO PRN (21:04)
[2018-11-16] MEDS: Insulin DETEMIR 100 UNIT/ML X5UNITS SQ SCH (21:04)
[2018-11-17] MEDS: Azithromycin 500 MG in D5% in Water 250 ML IVPB SCH (03:40)
[2018-11-17] MEDS: Albuterol 2.5 MG/3 ML NEBULIZER IH SCH ×4 (03:47→22:25)
[2018-11-17 04:41] LABS: Basophils % 0.2 %; Eosinophils % 0.1 %; Hematocrit 37.9 % (35.3-44.9); Hemoglobin 11.3 g/dL (11.5-15.4); Immature Granulocytes % 1.4 % (0-4); Lymphocytes # 0.9 K/mcL (0.6-4.6); Lymphocytes % 8.1 %; Mean Corpuscular HGB Conc 29.8 g/dL (31.6-35.5); Mean Corpuscular Hemoglobin 29.7 pg (28.0-33.3); Mean Corpuscular Volume 99.7 fL (83.0-100.0); Mean Platelet Volume 9.6 fL (9.4-12.4); Monocytes # 0.8 K/mcL (0.0-1.3); Monocytes % 7.3 %; Neutrophils # 9.2 K/mcL (1.6-8.9); Nucleated Red Blood Cells 0.2 /100 WBC (0); Platelet Count 217 K/mcL (140-400); Red Cell Distribution Width 16.5 % (11.5-14.5); Segmented Neutrophils % 82.9 %
[2018-11-17 04:44] LABS: Prothrombin Time 23.2 Seconds (9.4-12.1)
[2018-11-17 04:57] LABS: Calcium 9.3 mg/dL (8.6-10.3); Magnesium 1.7 mg/dL (1.6-2.6); Phosphorous 3.2 mg/dL (2.7-4.5); Potassium 4.3 mEq/L (3.5-5.1)
[2018-11-17] MEDS: predniSONE 20 MG TABLET PO SCH (08:18)
[2018-11-17] MEDS: Acetaminophen 325 MG TABLET PO PRN (08:18)
[2018-11-17] MEDS: Insulin LISPRO 300 UNITS/3 ML VIAL SQ SCH ×3 (08:19→20:34)
[2018-11-17] MEDS: cefTRIAXone 1,000 MG in Water for inj. (sterile) 10 ML IVP SCH (08:19)
[2018-11-17] MEDS: Furosemide 40 MG/4 ML VIAL IVP SCH ×2 (08:20→20:35)
[2018-11-17] MEDS: Tiotropium 18 MCG inhalation IH SCH (11:38)
[2018-11-17] MEDS ORDERED: *HR* Warfarin 3 MG TABLET PO ONE (18:00)
[2018-11-17] MEDS: Insulin DETEMIR 100 UNIT/ML X5UNITS SQ SCH (20:34)
[2018-11-17] MEDS: traMADol 50 MG TABLET PO PRN (20:35)
--- NOTE | 2018-11-17 23:47 | Internal Med Progress Note ---
Hospitalist Progress Note - Encounter Date of Encounter: 11/17/18 Time of Encounter: 11:20 - Subjective Interval History: Pt seen and examined today. She is gradually progressing to her baseline resp status. She uses 2L NC O2 at CT and is down to 3.5 L now. Her heart rate is better controlled now with addition of diltiazem. Echo reviewed, mild systolic function. - Exam Vitals: Temp Pulse Resp BP Pulse Ox 98.6 F 86 15 158/78 95 11/17/18 21:31 11/17/18 21:31 11/17/18 22:25 11/17/18 21:31 11/17/18 22:25 Exam: General: Alert and oriented Skin:Normal color, no rash, no lesions. HEENT:EOM, pupils equal, round and reactive. Cardiovascular:Normal S1 & S2, irregularly irregular Lungs: Faint diffuse wheezing bilaterally Abdomen:Soft, non-tender, no rigidity. Extremities: 3+ pitting edema bilaterally. Neurological:Normal cognition and motor skills. - Assessment and Plan (1) Acute and chronic respiratory failure with hypercapnia Current Visit: Yes Status: Acute Assessment and Plan: Pt comes in with acute on chronic respiratory failure secondary to CHF and COPD exacerbation' Continue BIPAP, nebs, steroids and antibiotics and diuresis. (2) COPD exacerbation Current Visit: Yes Status: Acute Assessment and Plan: History of COPD on home oxygen. Found to have a PCO2 of 84 on initial ABG. Patient was placed on BiPAP prior to transfer. Continue BIPAP, nebs, steroids and antibiotics. Pulm consult appreciated. (3) Acute exacerbation of Systolic CHF (congestive heart failure) unspecified EF Current Visit: Yes Status: Acute Assessment and Plan: Improving. Patient presented with dyspnea in the setting of increased lower extremity edema and history of congestive heart failure. Improving on lasix BID. Monitor ins and outs. Fluid restriction. (4) Atrial fibrillation Current Visit: Yes Status: Acute Assessment and Plan: History of atrial fibrillation rate controlled on anticoagulation with warfarin. Switch to Diltiazem CD. Pharmacy to monitor warfarin. (5) Diabetes type 2, controlled Current Visit: Yes Status: Acute Assessment and Plan: Stable. Continue patient on ADA diet with sliding scale plus basal insulin. Reason for contd stay. Further diuresis. - Time Spent with Patient Total time spent is greater than 50% in coordination of care (as documented) at patient's floor/unit and/or counseling patient: Internal Medicine: Result - Labs CBC & Chem 7: 11/17/18 04:02 11/17/18 04:02 Labs: Short CBC 11/17/18 Range/Units 04:02 WBC 11.0 (4.3-11.1) K/mcL Hgb 11.3 L (11.5-15.4) g/dL Hct 37.9 (35.3-44.9) % Plt Count 217 (140-400) K/mcL Neutrophils # 9.2 H (1.6-8.9) K/mcL BMP 11/17/18 04:02 Sodium 138 Potassium 4.3 Chloride 94 L Carbon Dioxide 39 H BUN 55 H Creatinine 1.12 Glucose 276 H Calcium 9.3 - ABG Interpretation ABG results: ABG ABG pH 7.38 pH Units (7.32-7.45) 11/16/18 07:43 ABG pCO2 74 mmHg (35-45) H* 11/16/18 07:43 ABG pO2 62 mmHg (85-104) L 11/16/18 07:43 ABG O2 Saturation 90 % (95-98) L 11/16/18 07:43 PT/INR, D-dimer PT 23.2 Seconds (9.4-12.1) H 11/17/18 04:02 Consult Discharge Plan - Plan Referrals: NONE,PCP [Primary Care Provider] -
[2018-11-18] MEDS: Albuterol 2.5 MG/3 ML NEBULIZER IH SCH ×4 (04:23→22:12)
[2018-11-18] MEDS: Diltiazem CD (24hr) 120 MG CAPSULE PO SCH (05:53)
[2018-11-18 06:42] LABS: Eosinophils # 0.1 K/mcL (0.0-0.6); Eosinophils % 1.1 %; Hematocrit 39.3 % (35.3-44.9); Hemoglobin 11.7 g/dL (11.5-15.4); Immature Granulocytes % 0.7 % (0-4); Lymphocytes # 1.1 K/mcL (0.6-4.6); Lymphocytes % 11.7 %; Mean Corpuscular HGB Conc 29.8 g/dL (31.6-35.5); Mean Corpuscular Volume 100.8 fL (83.0-100.0); Mean Platelet Volume 9.7 fL (9.4-12.4); Monocytes # 0.9 K/mcL (0.0-1.3); Monocytes % 8.7 %; Neutrophils # 7.6 K/mcL (1.6-8.9); Platelet Count 203 K/mcL (140-400); Red Cell Distribution Width 16.1 % (11.5-14.5); Segmented Neutrophils % 77.8 %; White Blood Count 9.7 K/mcL (4.3-11.1)
[2018-11-18 06:49] LABS: Prothrombin Time 22.9 Seconds (9.4-12.1)
[2018-11-18 07:08] LABS: BUN/Creatinine Ratio 65 (6-26); Blood Urea Nitrogen 57 mg/dL (8-23); Calcium 9.7 mg/dL (8.6-10.3); Carbon Dioxide 44 mEq/L (23-29); Chloride 93 mEq/L (98-107); Glucose 124 mg/dL (70-105); Magnesium 1.8 mg/dL (1.6-2.6); Osmolality,Calculated 311 (280-300); Phosphorous 3.1 mg/dL (2.7-4.5); Sodium 142 mEq/L (136-145); eGFR For African Americans > 60 (> 60); eGFR For Non-African Americans > 60 (> 60)
[2018-11-18] MEDS: Insulin LISPRO 300 UNITS/3 ML VIAL SQ SCH ×4 (07:48→21:45)
[2018-11-18] MEDS: predniSONE 20 MG TABLET PO SCH (07:51)
[2018-11-18] MEDS: Azithromycin 250 MG TABLET PO SCH (07:51)
[2018-11-18] MEDS: Furosemide 40 MG/4 ML VIAL IVP SCH ×2 (07:51→21:44)
[2018-11-18] MEDS: cefTRIAXone 1,000 MG in Water for inj. (sterile) 10 ML IVP SCH (07:51)
[2018-11-18] MEDS: Tiotropium 18 MCG inhalation IH SCH (10:36)
[2018-11-18] MEDS: Acetaminophen 325 MG TABLET PO PRN (16:30)
[2018-11-18] MEDS ORDERED: *HR* Warfarin 3 MG TABLET PO ONE (18:00)
--- NOTE | 2018-11-18 19:03 | Internal Med Progress Note ---
Hospitalist Progress Note - Encounter Date of Encounter: 11/18/18 Time of Encounter: 18:52 - Subjective Interval History: Patient is 78 year old female resting comfortably at rest asking for food. Patient is very hard of hearing with low medical literacy. Patient as noted to have hearing loss past few months at the facility. Patient otherwise breathing i s the same as it has been past few months. Patient have been noncomplaint with her BIPAP at the facility and gets hypercapneic and short of breath when not wearing. I educated the patient on the need for complaince for BIPAP qHS. Otherwise no fever, chills, worsening cough/sputum production, abdominal pain nausea, vomiting, or chest pain. - Exam Vitals: Temp Pulse Resp BP Pulse Ox 97.7 F 102 20 165/96 91 11/18/18 14:51 11/18/18 14:51 11/18/18 14:51 11/18/18 14:51 11/18/18 14:51 Exam: General: Alert and oriented Skin:Normal color, no rash, no lesions. HEENT:EOM, pupils equal, round and reactive. Cardiovascular: grade 2 systolic murmur. irregularly irregular Lungs: Faint diffuse wheezing bilaterally Abdomen:Soft, non-tender, no rigidity. Extremities: 2+ pitting edema bilaterally. Neurological:Normal cognition and motor skills. - Assessment and Plan (1) Acute and chronic respiratory failure with hypercapnia Current Visit: Yes Status: Acute DVT Prophylaxis: On coumadin - Summary of Assessment and Plan Summary of Assessment and Plan: Acute Mixed Respiratory Failure on chronic hypercapneic respiratory failure: Improving back to baseline with BiPAP daily at bedtime and during naps. COPD exacerbation in the setting of suspected OHS and JAQUELINE. Continue Prednisone 11/21/2018, and azithormycin till 11/21/2018. Discontinued Ceftriaxone-patient continues to be afebrile and no leukocytosis. Plan is to discharge tomorrow unless noted with BiPAP to be used daily at bedtime in addition for outpatient polysomonography Acute COPD exacerbation: Patient returning progressing to baseline currently at 3.5L NC Continue current prednisone for 5 doses, and azithromycin for 5 days. Plan is D/C tomorrow to snf. Acute on Chronic Atrial Fibrillation: Resolved. Currently on Diltiazem rate controlled and warfarin for anticoagulation. Type 2 Diabetes: Uncontrolled. Increased long acting to 32 units and continue ISS. ACute HFpEF NYHA 3 Continue lasix BID. I/o balance -1L - Time Spent with Patient Total time spent is greater than 50% in coordination of care (as documented) at patient's floor/unit and/or counseling patient: Greater than 35 minutes Plan of Care Discussed with: patient Internal Medicine: Result - Labs CBC & Chem 7: 11/18/18 05:58 11/18/18 05:58 Labs: Short CBC 11/18/18 Range/Units 05:58 WBC 9.7 (4.3-11.1) K/mcL Hgb 11.7 (11.5-15.4) g/dL Hct 39.3 (35.3-44.9) % Plt Count 203 (140-400) K/mcL Neutrophils # 7.6 (1.6-8.9) K/mcL BMP 11/18/18 05:58 Sodium 142 Potassium 4.0 Chloride 93 L Carbon Dioxide 44 H* BUN 57 H Creatinine 0.88 Glucose 124 H Calcium 9.7 - ABG Interpretation ABG results: ABG ABG pH 7.38 pH Units (7.32-7.45) 11/16/18 07:43 ABG pCO2 74 mmHg (35-45) H* 11/16/18 07:43 ABG pO2 62 mmHg (85-104) L 11/16/18 07:43 ABG O2 Saturation 90 % (95-98) L 11/16/18 07:43 PT/INR, D-dimer PT 22.9 Seconds (9.4-12.1) H 11/18/18 05:58 Consult Discharge Plan - Plan Referrals: NONE,PCP [Primary Care Provider] -
[2018-11-18] MEDS ORDERED: Insulin DETEMIR 100 UNIT/ML X5UNITS SQ SCH (21:00)
[2018-11-18] MEDS: traMADol 50 MG TABLET PO PRN (21:44)
[2018-11-18] MEDS: Insulin DETEMIR 100 UNIT/ML X5UNITS SQ SCH (22:20)
[2018-11-19] MEDS: traMADol 50 MG TABLET PO PRN ×3 (04:14→20:52)
[2018-11-19] MEDS: Albuterol 2.5 MG/3 ML NEBULIZER IH SCH ×4 (04:40→22:18)
[2018-11-19 07:43] LABS: Basophils % 0.1 %; Eosinophils # 0.2 K/mcL (0.0-0.6); Eosinophils % 1.5 %; Hematocrit 40.4 % (35.3-44.9); Hemoglobin 12.1 g/dL (11.5-15.4); Immature Granulocytes % 0.9 % (0-4); Lymphocytes # 1.4 K/mcL (0.6-4.6); Lymphocytes % 13.5 %; Mean Corpuscular Hemoglobin 29.7 pg (28.0-33.3); Mean Platelet Volume 10.1 fL (9.4-12.4); Monocytes # 0.9 K/mcL (0.0-1.3); Monocytes % 8.9 %; Neutrophils # 7.7 K/mcL (1.6-8.9); Platelet Count 199 K/mcL (140-400); Red Blood Count 4.08 M/mcL (3.82-4.97); Red Cell Distribution Width 16.3 % (11.5-14.5); Segmented Neutrophils % 75.1 %; White Blood Count 10.3 K/mcL (4.3-11.1)
[2018-11-19 07:55] LABS: INR 2.3; Prothrombin Time 25.8 Seconds (9.4-12.1)
[2018-11-19 08:00] LABS: BUN/Creatinine Ratio 63 (6-26); Blood Urea Nitrogen 53 mg/dL (8-23); Calcium 9.5 mg/dL (8.6-10.3); Carbon Dioxide > 45 mEq/L (23-29); Chloride 93 mEq/L (98-107); Glucose 89 mg/dL (70-105); Osmolality,Calculated 314 (280-300); Potassium 3.8 mEq/L (3.5-5.1); Sodium 145 mEq/L (136-145); eGFR For African Americans > 60 (> 60); eGFR For Non-African Americans > 60 (> 60)
--- NOTE | 2018-11-19 08:10 | Internal Med Progress Note ---
Hospitalist Progress Note - Encounter Date of Encounter: 11/19/18 Time of Encounter: 08:07 - Subjective Interval History: Patient examined and seen [id number] at the bedside. Patient was sitting comfortable in bed with improved shortness of breath but not at baseline. Patient reported that she is very weak and has been in bed when usually she is able to participate with physical therapy to walk. Patient also stated that she has not passed any bowel movements. Otherwise patient denies any nausea, vomiting, chest pain, abdominal pain, dysuria, fever or chills. - Exam Vitals: Temp Pulse Resp BP Pulse Ox 97.7 F 15 18 178/102 96 11/18/18 23:34 11/19/18 06:59 11/19/18 04:43 11/19/18 06:59 11/19/18 06:59 Exam: General: Alert and oriented Skin:Normal color, no rash, no lesions. HEENT: EOM, pupils equal, round and reactive. Cardiovascular: grade 2 systolic murmur. irregularly irregular Lungs: Faint diffuse wheezing bilaterally, with minimal accessory muscle usage on nasal cannula Abdomen:Soft, non-tender, no rigidity. Extremities: 2+ pitting edema bilaterally. MSK: 5/5 bilaterally upper extremity, 3/5 lower extremities bilaterally. Neurological:Normal cognition and motor skills. - Assessment and Plan (1) Acute and chronic respiratory failure with hypercapnia Current Visit: Yes Status: Acute DVT Prophylaxis: On coumadin - Summary of Assessment and Plan Summary of Assessment and Plan: Acute Mixed Respiratory Failure on chronic hypercapneic respiratory failure: Improving back to baseline with BiPAP daily at bedtime and during naps. COPD exacerbation in the setting of suspected OHS and JAQUELINE. Continue Prednisone 11/21/2018, and azithormycin till 11/21/2018. Patient is not at baseline to be discharged today and is complaining of weakness thus we will continue with therapy. Patient will also be valid overnight for BiPAP to qualify. Patient will need outpatient polysomnography for suspected obstructive sleep apnea. anticipated discharge in 1-2 days Acute COPD exacerbation: progressing to baseline currently at 3.5L NC Continue current prednisone for 5 doses, and azithromycin for 5 days. We will continue to monitor for improvement and reassess tomorrow. Acute on Chronic Atrial Fibrillation: Rate controlled. Currently on Diltiazem rate controlled and warfarin for anticoagulation. Type 2 Diabetes: Uncontrolled. Continue long acting to 30 units and continue ISS. ACute HFpEF NYHA 3 Significantly improved. I/o balance -1.9L Will decrease Lasix to oral 60 mg BID (increased from her home dose) Will need 2gm of Na restriction. Hypomagnesemia: Patient was given oral magnesium oxide with recheck in a.m. Subacute hearing loss: Cerumen was noted on the tympanic membrane with wash done yesterday. Patient will need a commercial solar sales consultant as outpatient for suspected presbycusis Acute constipation: Bowel prep was ordered. Lower extremity weakness: History of leg surgery and chronic weakness prior to hospitalization. PT ordered for evaluation and treatment DVT prophylaxis on systemic anticoagulation Disposal: Anticipation discharge in 1- 2 days - Time Spent with Patient Total time spent is greater than 50% in coordination of care (as documented) at patient's floor/unit and/or counseling patient: Internal Medicine: Result - Labs CBC & Chem 7: 11/19/18 06:39 11/19/18 06:39 Labs: Short CBC 11/19/18 Range/Units 06:39 WBC 10.3 (4.3-11.1) K/mcL Hgb 12.1 (11.5-15.4) g/dL Hct 40.4 (35.3-44.9) % Plt Count 199 (140-400) K/mcL Neutrophils # 7.7 (1.6-8.9) K/mcL BMP 11/19/18 06:39 Sodium 145 Potassium 3.8 Chloride 93 L Carbon Dioxide > 45 H* BUN 53 H Creatinine 0.84 Glucose 89 Calcium 9.5 - ABG Interpretation ABG results: ABG ABG pH 7.38 pH Units (7.32-7.45) 11/16/18 07:43 ABG pCO2 74 mmHg (35-45) H* 11/16/18 07:43 ABG pO2 62 mmHg (85-104) L 11/16/18 07:43 ABG O2 Saturation 90 % (95-98) L 11/16/18 07:43 PT/INR, D-dimer PT 25.8 Seconds (9.4-12.1) H 11/19/18 06:39 Consult Discharge Plan - Plan Referrals: NONE,PCP [Primary Care Provider] -
[2018-11-19] MEDS: Furosemide 40 MG/4 ML VIAL IVP SCH (08:14)
[2018-11-19] MEDS: Insulin LISPRO 300 UNITS/3 ML VIAL SQ SCH ×4 (08:14→20:53)
[2018-11-19] MEDS: Diltiazem CD (24hr) 120 MG CAPSULE PO SCH (08:14)
[2018-11-19] MEDS: Azithromycin 250 MG TABLET PO SCH (08:15)
[2018-11-19] MEDS: Lisinopril 20 MG TABLET PO SCH (08:15)
[2018-11-19] MEDS: predniSONE 20 MG TABLET PO SCH (08:15)
[2018-11-19] MEDS: Magnesium Oxide 400 MG TABLET PO SCH ×2 (08:18→20:52)
[2018-11-19] MEDS: Tiotropium 18 MCG inhalation IH SCH (11:45)
[2018-11-19] MEDS: Furosemide 40 MG TABLET PO SCH (17:21)
[2018-11-19] MEDS ORDERED: *HR* Warfarin 3 MG TABLET PO ONE (18:00)
[2018-11-19] MEDS: Insulin DETEMIR 100 UNIT/ML X5UNITS SQ SCH (20:52)
[2018-11-20 02:37] LABS: Basophils % 0.2 %; Eosinophils # 0.1 K/mcL (0.0-0.6); Eosinophils % 0.8 %; Hemoglobin 11.2 g/dL (11.5-15.4); Immature Granulocytes % 0.8 % (0-4); Lymphocytes % 8.3 %; Mean Corpuscular HGB Conc 30.3 g/dL (31.6-35.5); Mean Corpuscular Hemoglobin 29.6 pg (28.0-33.3); Mean Corpuscular Volume 97.6 fL (83.0-100.0); Mean Platelet Volume 10.5 fL (9.4-12.4); Monocytes # 0.9 K/mcL (0.0-1.3); Monocytes % 7.7 %; Neutrophils # 9.8 K/mcL (1.6-8.9); Platelet Count 190 K/mcL (140-400); Red Blood Count 3.79 M/mcL (3.82-4.97); Red Cell Distribution Width 16.2 % (11.5-14.5); Segmented Neutrophils % 82.2 %; White Blood Count 11.9 K/mcL (4.3-11.1)
[2018-11-20 02:46] LABS: INR 2.2
[2018-11-20 02:58] LABS: BUN/Creatinine Ratio 57 (6-26); Blood Urea Nitrogen 48 mg/dL (8-23); Calcium 8.9 mg/dL (8.6-10.3); Carbon Dioxide 41 mEq/L (23-29); Chloride 92 mEq/L (98-107); Glucose 253 mg/dL (70-105); Osmolality,Calculated 313 (280-300); Potassium 3.9 mEq/L (3.5-5.1); Sodium 141 mEq/L (136-145); eGFR For African Americans > 60 (> 60); eGFR For Non-African Americans > 60 (> 60)
[2018-11-20] MEDS: Albuterol 2.5 MG/3 ML NEBULIZER IH SCH ×2 (04:09→09:42)
[2018-11-20] MEDS: traMADol 50 MG TABLET PO PRN (06:29)
[2018-11-20] MEDS: predniSONE 20 MG TABLET PO SCH (08:01)
[2018-11-20] MEDS: Lisinopril 20 MG TABLET PO SCH (08:01)
[2018-11-20] MEDS: Magnesium Oxide 400 MG TABLET PO SCH (08:01)
[2018-11-20] MEDS: Azithromycin 250 MG TABLET PO SCH (08:01)
[2018-11-20] MEDS: Diltiazem CD (24hr) 120 MG CAPSULE PO SCH (08:02)
[2018-11-20] MEDS: Insulin LISPRO 300 UNITS/3 ML VIAL SQ SCH (08:02)
[2018-11-20] MEDS: Furosemide 40 MG TABLET PO SCH (08:02)
[2018-11-20] MEDS: Tiotropium 18 MCG inhalation IH SCH (09:42)
--- NOTE | 2018-11-20 10:49 | Discharge Summary ---
- NOTES TO OUTPATIENT PROVIDER Notes to Outpatient Provider: Follow up with PCP, celery wrapper and pulmonary. Patient will need PT while at shelter. Orders not resulted at time of discharge: Pending orders 11/20/18 10:06 GI Panel,Stool [MOLMIC] Stat Date of Encounter: 11/20/18 Time of Encounter: 10:38 - Discharge Diagnosis (1) Acute and chronic respiratory failure with hypercapnia Priority: Primary Status: Acute (2) Acute exacerbation of CHF (congestive heart failure) Priority: Secondary Status: Acute Qualifiers: Heart failure type: unspecified Qualified Code(s): I50.9 - Heart failure, unspecified (3) Atrial fibrillation Priority: Secondary Status: Acute Qualifiers: Atrial fibrillation type: unspecified Qualified Code(s): I48.91 - Unspecified atrial fibrillation (4) COPD exacerbation Priority: Secondary Status: Acute (5) Diabetes type 2, controlled Priority: Secondary Status: Acute Qualifiers: Diabetes mellitus usp insulin use: unspecified bed bug exterminator insulin use status Qualified Code(s): E11.9 - Type 2 diabetes mellitus without complications (6) Obesity hypoventilation syndrome Priority: Secondary Status: Acute Hospital course: Ms. Norris is a 78 year old pleasant elderly female with past medical history of A. fib on diltiazem, metoprolol and warfarin, half at bedtime PEF, COPD on patient dependent on 3 beers, to be diabetes initially presented from the hospital for DKA for increased dyspnea that has been progressive for over a week in addition to lower extremity edema. Patient had that time denied any fever or chills and was reported to not be compliant with BiPAP at the facility. Patient subsequently was admitted for acute hypoxic respiratory failure on chronic hypoxic respiratory failure COPD and CHF exacerbation. Patient throughout stay was receiving IV Lasix, doxycycline, prednisone and scheduled DuoNeb, BiPAP daily at bedtime with significant improvement. Patient symptomatically improved significantly progressing to baseline and after getting to her baseline at 3 L 24 hours. The patient was educated on the need for compliance for BiPAP daily at bedtime. Patient also was noted to have bilateral hearing loss that is worse with noise being around and most was recommended for audiology as outpatient. PT was involved although patient stated that she is bedbound after receiving right knee surgery. Patient will need outpatient orthopedic follow-up. Patient unless they had one episode of bowel movement that was concerning tests a GI PCR was ordered and resulted negative. Patient was educated on her clinical status, educated and discussed current care. He v erbalized understanding she will be discharged back to shelter. Questions and concerns was addressed. - Time Spent with Patient Total time spent 32 minutes providing and/or coordinating discharge services: Time spent: Greater than 30 minutes - Discharge Medications Prescriptions: New Diltiazem CD (24hr) [Cardizem CD] 120 mg PO DAILY cap.er.24h Furosemide [Lasix] 60 mg PO BIDDIURETIC tablet predniSONE [PredniSONE] 40 mg PO DAILY #1 tablet Azithromycin [Zithromax] 500 mg PO DAILY 2 Days #2 tablet Continued Acetaminophen [Tylenol] 650 mg PO Q6HR PRN PRN Reason: Fever Fluticasone/Salmeterol [Advair 500-50 Diskus] 1 puff IH BID Albuterol Neb [Proventil Neb] 2.5 mg IH Q6HR PRN PRN Reason: Shortness Of Breath Allopurinol [Zyloprim] 300 mg PO DAILY Ubidecarenone [Coenzyme Q10] 200 mg PO DAILY Warfarin [Coumadin] 3 mg PO DAILY Sennosides/Docusate Sodium [Dok Plus Tablet] 1 each PO DAILY Escitalopram [Lexapro] 10 mg PO DAILY Ferrous Sulfate [Iron] 325 mg PO DAILY Fluticasone Propionate [Flovent Diskus] 2 each IH QAM Insulin ASPART [Novolog Flexpen] See Protocol SQ ACHS Insulin DETEMIR [Levemir Flextouch] 30 unit SQ HS Ondansetron ODT [Zofran ODT] 4 mg SL Q6HR PRN PRN Reason: Nausea And Vomiting Vitamin B Complex [B Complex] 1 tab PO QAM Simvastatin [Zocor] 10 mg PO DAILY Polyethylene Glycol 3350 [MiraLAX] 17 gm PO DAILY Omeprazole [PriLOSEC] 20 mg PO DAILY Nitroglycerin [Nitrostat] 0.4 mg SL Q5MIN PRN PRN Reason: Chest Pain Metoprolol Succinate 50 mg PO QAM Melatonin [Melatin] 3 mg PO HS Ipratropium Neb [Atrovent Neb] 0.5 mg IH Q8HR PRN PRN Reason: Shortness Of Breath Discontinued Diltiazem CD (24hr) [Cardizem CD] 180 mg PO QAM Furosemide [Lasix] 40 mg PO BID Home Medications: Acetaminophen [Tylenol] 650 mg PO Q6HR PRN 11/14/18 [History] Albuterol Neb [Proventil Neb] 2.5 mg IH Q6HR PRN 11/14/18 [History] Allopurinol [Zyloprim] 300 mg PO DAILY 11/14/18 [History] Escitalopram [Lexapro] 10 mg PO DAILY 11/14/18 [History] Ferrous Sulfate [Iron] 325 mg PO DAILY 11/14/18 [History] Fluticasone Propionate [Flovent Diskus] 2 each IH QAM 11/14/18 [History] Fluticasone/Salmeterol [Advair 500-50 Diskus] 1 puff IH BID 11/14/18 [History] Insulin ASPART [Novolog Flexpen] See Protocol SQ ACHS 11/14/18 [History] Insulin DETEMIR [Levemir Flextouch] 30 unit SQ HS 11/14/18 [History] Ipratropium Neb [Atrovent Neb] 0.5 mg IH Q8HR PRN 11/14/18 [History] Melatonin [Melatin] 3 mg PO HS 11/14/18 [History] Metoprolol Succinate 50 mg PO QAM 11/14/18 [History] Nitroglycerin [Nitrostat] 0.4 mg SL Q5MIN PRN 11/14/18 [History] Omeprazole [PriLOSEC] 20 mg PO DAILY 11/14/18 [History] Ondansetron ODT [Zofran ODT] 4 mg SL Q6HR PRN 11/14/18 [History] Polyethylene Glycol 3350 [MiraLAX] 17 gm PO DAILY 11/14/18 [History] Sennosides/Docusate Sodium [Dok Plus Tablet] 1 each PO DAILY 11/14/18 [History] Simvastatin [Zocor] 10 mg PO DAILY 11/14/18 [History] Ubidecarenone [Coenzyme Q10] 200 mg PO DAILY 11/14/18 [History] Vitamin B Complex [B Complex] 1 tab PO QAM 11/14/18 [History] Warfarin [Coumadin] 3 mg PO DAILY 11/14/18 [History] Azithromycin [Zithromax] 500 mg PO DAILY 2 Days #2 tablet 11/20/18 [Rx] Diltiazem CD (24hr) [Cardizem CD] 120 mg PO DAILY cap.er.24h 11/20/18 [Rx] Furosemide [Lasix] 60 mg PO BIDDIURETIC tablet 11/20/18 [Rx] predniSONE [PredniSONE] 40 mg PO DAILY #1 tablet 11/20/18 [Rx] Allergies/Adverse Reactions: Allergy/AdvReac Type Severity Reaction Status Date / Time Amoxicillin Allergy Unknown Verified 11/14/18 09:23 atorvastatin [From Lipitor] AdvReac Shakiness Verified 11/14/18 09:23 celecoxib [From Celebrex] AdvReac Shakiness Verified 11/14/18 09:23 naproxen AdvReac Shakiness Verified 11/14/18 09:23 NSAIDS (Non-Steroidal AdvReac Shakiness Verified 11/14/18 09:23 Anti-Inflamma Penicillins AdvReac Depression Verified 11/14/18 09:23 Date of admission: 11/17/18 12:47 Primary care physician: PCP NONE Consults: 11/13/18 19:19 Consult to Nurse Navigator [CONS] Routine Comment: 11/14/18 10:38 PT [Consult to Physical Therapy] [CONS] Routine Comment: Evaluate, develop and implement POC Reason for Consult: unknown discharge disposition Does patient have active BEDREST order?: No Is patient medically & hemodynamically stable?: Yes Patient assessed for mobility or mobilized this visit?: No 11/14/18 10:39 OT [Consult to Occupational Therapy] [CONS] Routine Comment: Evaluate, develop and implement POC Reason for Consult: unknown discharge disposition Does patient have active BEDREST order?: No Is patient medically & hemodynamically stable?: Yes Patient assessed for mobility or mobilized this visit?: No 11/16/18 09:24 Consult to Pulmonology [CONS] Routine Consulting Provider: [facility] Reason for Consult: Hypercapneic resp failure and CHF. Leukocytosis. Do we need to change abx. Time Notified: 09:25 Call Completed: No 11/19/18 07:45 Consult to Physical Therapy [CONS] Routine Comment: Evaluate, develop and implement POC Reason for Consult: patient weak and needs rehab and hospital intervention. Does patient have active BEDREST order?: No Is patient medically & hemodynamically stable?: Yes Patient assessed for mobility or mobilized this visit?: No - Constitutional Vitals: Temp Pulse Resp BP Pulse Ox 98.2 F 94 18 142/87 95 11/20/18 07:35 11/20/18 07:35 11/20/18 09:43 11/20/18 07:35 11/20/18 09:43 Exam: General: Alert and oriented no acute distress. Skin:Normal color, no rash, no lesions. HEENT: EOM, pupils equal, round and reactive. TM cerumen noted prevoisly now cleared. Cardiovascular: grade 2 systolic murmur. irregularly irregular Lungs: Faint diffuse wheezing bilaterally, with minimal accessory muscle usage on nasal cannula Abdomen:Soft, non-tender, no rigidity. Extremities: 2+ pitting edema bilaterally. MSK: 5/5 bilaterally upper extremity, 3/5 lower extremities bilaterally limited to pain. Neurological:Normal cognition and motor skills. - Patient Status Disposition: Transfer SNF Condition: Good Functional capacity at discharge: bed bound Overall status at discharge: patient is back to baseline - Discharge Instructions Follow Up With: NONE,PCP [Primary Care Provider] - (audiology) Jarred Beltrán MD [Partnered Physician] - - Diet and Activity Activity: as per physical therapy Diet: advance to your usual diet
[2018-11-20 12:30] LABS: Adenovirus F 40/41 PCR Not detected (Not detect); Astrovirus PCR Not detected (Not detect); C.difficile Toxin A/B Gene PCR Not detected (Not detect); Campylobacter by PCR Not detected (Not detect); Cryptosporidium by PCR Not detected (Not detect); Cyclospora cayetanensis PCR Not detected (Not detect); E. coli O157 by PCR Not detected (Not detect); Entamoeba histolytica PCR Not detected (Not detect); Enteroaggregative E.coli(EAEC) Not detected (Not detect); Enteropathogenic E.coli(EPEC) Not detected (Not detect); Enterotoxigenic E.coli (ETEC) Not detected (Not detect); Giardia lamblia PCR Not detected (Not detect); Norovirus GI/GII PCR Not detected (Not detect); Plesiomonas shigelloides PCR Not detected (Not detect); Rotavirus A PCR Not detected (Not detect); Salmonella PCR Not detected (Not detect); Sapovirus PCR Not detected (Not detect); Shig/EnteroinvasiveE coli EIEC Not detected (Not detect); Shigalike tox-prod E coli STEC Not detected (Not detect); Vibrio PCR Not detected (Not detect); Vibrio cholerae PCR Not detected (Not detect); Yersinia enterocolitica PCR Not detected (Not detect)
[2018-11-20 13:01] VITALS: BP 138/72
[2018-11-20] MEDS ORDERED: Acetaminophen 325 MG TABLET PO PRN (13:26)
[2018-11-20] MEDS ORDERED: *HR* Warfarin 3 MG TABLET PO ONE (18:00)
[2018-11-20] MEDS ORDERED: Insulin DETEMIR 100 UNIT/ML X5UNITS SQ SCH (21:00)
[2018-11-20] MEDS ORDERED: Melatonin 3 MG TABLET PO SCH (21:00)
[2018-11-21] MEDS ORDERED: FLUTICASONE PROPIONATE 50 MCG NS SCH (09:00)
[2018-11-21] MEDS ORDERED: Fluticasone Propionate Nasal 50 MCG/SPRAY BOTTLE NS SCH (09:00)
[2018-11-21] MEDS ORDERED: Sennosides/Docusate Sodium TABLET PO SCH (09:00)
== END 2018-11-20 14:51 | DRG 291 ==
LOC: 2NENU → SUATTDRO 11-17 12:47
PROVIDERS: ADMIT Student in an Organized Health Care Education/Training Program; ATTEND Internal Medicine